=== PATIENT | male | born 2000 | race Caucasian/White ===

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

== ENCOUNTER 2020-01-22 16:20 | Emergency (ER) | payer BC, MEDICAID ==
--- NOTE | 2020-01-22 16:57 | ERPHSYRPT ---
- History of Present Illness Time Seen by Provider: 01/22/20 16:40 Source: patient Exam Limitations: no limitations Patient Subjective Stated Complaint: Pt states "My Dr., Dr. Pack, increased my diet medicine today and I have been having panic attacks and forgetting thi ngs." Triage Nursing Assessment: Pt presented alert and oriented X 3, skin pwd Pt ambulates with an upright steady gait, able to speak in clear full sentences. Pt in no apparent repsiratory distress. Physician History: This is an overweight 19-year-old white male who was seen by his primary care physician to be started on appetite suppressant medication. Patient had been on Topamax in the past at 25 mg a day. This was approximately 2 years ago. Patient was started on 200 mg Topamax orally twice a day. At approximately 10 AM he took his first dose today. Since that time he has felt nervous and had panic attacks. He was very forgetful and was concerned about his symptoms so he came to the emergency room after discussing these issues with the doctor's office who told him to come to the emergency department. Timing/Duration: today Severity: mild Modifying Factors: Improves With: medication Associated Symptoms: loss of appetite, other (Nervous anxious forgetfulness) Allergies/Adverse Reactions: No Known Drug Allergies Allergy (Verified 01/22/20 16:33) Home Medications: Topiramate [Topiramate ER] 25 mg PO DAILY 01/22/20 [History] Hx Tetanus, Diphtheria Vaccination/Date Given: No Hx Influenza Vaccination/Date Given: No Hx Pneumococcal Vaccination/Date Given: No Immunizations Up to Date: Yes Travel Risk - International Travel Have you traveled outside of the country in past 3 weeks: No - Coronavirus Screening Are you exhibiting any of the following symptoms?: Yes Symptoms: Vomiting/Diarrhea Close contact with a COVID-19 positive Pt in past 14-21 Days: No - Review of Systems Constitutional: No Symptoms Eyes: No Symptoms Ears, Nose, & Throat: No Symptoms Respiratory: No Symptoms Cardiac: No Symptoms Abdominal/Gastrointestinal: No Symptoms Genitourinary Symptoms: No Symptoms Musculoskeletal: No Symptoms Skin: No Symptoms Neurological: Other (Nervousness panic attacks forgetfulness) Psychological: Anxiety Endocrine: No Symptoms Hematologic/Lymphatic: No Symptoms Immunological/Allergic: No Symptoms All Other Systems: Reviewed and Negative - Past Medical History Pertinent Past Medical History: No Neurological History: No Pertinent History ENT History: No Pertinent History Cardiac History: No Pertinent History Respiratory History: No Pertinent History Endocrine Medical History: No Pertinent History Musculoskeletal History: No Pertinent History GI Medical History: No Pertinent History History: No Pertinent History Psycho-Social History: No Pertinent History Male Reproductive Disorders: No Pertinent History - Past Surgical History Past Surgical History: No Neuro Surgical History: No Pertinent History Cardiac: No Pertinent History Respiratory: No Pertinent History Gastrointestinal: No Pertinent History Genitourinary: No Pertinent History Musculoskeletal: No Pertinent History Male Surgical History: No Pertinent History - Social History Smoking Status: Never smoker Exposure to second hand smoke: No Drug Use: marijuana Patient Lives Alone: No - Nursing Vital Signs Nursing Vital Signs: Initial Vital Signs Temperature 97.9 F 01/22/20 16:27 Pulse Rate 109 H 01/22/20 16:27 Respiratory Rate 22 01/22/20 16:27 Blood Pressure 160/87 01/22/20 16:27 O2 Sat by Pulse Oximetry 95 01/22/20 16:27 Pain Scale Pain Intensity 0 - Physical Exam General Appearance: no apparent distress, alert, anxiety Eye Exam: PERRL/EOMI, eyes nml inspection Ears, Nose, Throat Exam: normal ENT inspection, moist mucous membranes Neck Exam: normal inspection, non-tender, supple, full range of motion Respiratory Exam: normal breath sounds, lungs clear, No chest tenderness, No respiratory distress Cardiovascular Exam: regular rate/rhythm, normal heart sounds, normal peripheral pulses Gastrointestinal/Abdomen Exam: soft, normal bowel sounds, No tenderness Rectal Exam: not done Back Exam: normal inspection, normal range of motion, No CVA tenderness, No vertebral tenderness Extremity Exam: normal inspection, normal range of motion, pelvis stable Neurologic Exam: alert, oriented x 3, cooperative, 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 There is no comparison EKG available.) Ordered Tests: Active Orders 24 hr Category Date Time Status EKG-ER Only STAT Care 01/22/20 16:59 Active CBC W DIFF Stat Lab 01/22/20 17:05 Completed CMP Stat Lab 01/22/20 17:05 Completed UA W/RFX UR CULTURE Stat Lab 01/22/20 17:50 Completed Urine Triage Profile Stat Lab 01/22/20 17:44 Ordered Medication Summary Discontinued Medications Generic Name Dose Route Start Last Admin Trade Name Sheryl PRN Reason Stop Dose Admin Lorazepam 0.5 mg 01/22/20 17:06 01/22/20 17:10 Ativan 2 Mg/1 Ml Vial IM 01/22/20 17:07 0.5 mg STAT ONE Administration Lorazepam Confirm 01/22/20 17:09 Ativan 2 Mg/1 Ml Vial Administered 01/22/20 17:10 Dose 2 mg .ROUTE .[facility]-MED ONE Lab/Rad Data: Laboratory Result Diagrams 01/22/20 17:05 01/22/20 17:05 Laboratory Results 01/22/20 01/22/20 01/22/20 Range/Units 17:50 17:05 17:05 WBC 8.1 (4.0-10.5) K/mm3 RBC 5.28 (4.1-5.6) M/mm3 Hgb 14.8 (12.5-18.0) gm/dl Hct 43.3 (42-50) % MCV 82.0 (78-100) fl MCH 28.0 (26-32) pg MCHC 34.2 (32-36) g/dl RDW 12.9 (11.5-14.0) % Plt Count 355 (150-450) K/mm3 MPV 9.9 (7.5-11.0) fl Gran % 60.1 (36.0-66.0) % Eos # (Auto) 0.10 (0-0.5) Absolute Lymphs (auto) 2.34 (1.0-4.6) Absolute Monos (auto) 0.74 (0.0-1.3) Lymphocytes % 29.1 (24.0-44.0) % Monocytes % 9.2 (0.0-12.0) % Eosinophils % 1.2 (0.00-5.0) % Basophils % 0.4 (0.0-0.4) % Absolute Granulocytes 4.84 (1.4-6.9) Basophils # 0.03 (0-0.4) Sodium 138 (137-145) mmol/L Potassium 3.7 (3.5-5.1) mmol/L Chloride 103 (98-107) mmol/L Carbon Dioxide 26 (22-30) mmol/L Anion Gap 13.3 (5-15) MEQ/L BUN 6 L (9-20) mg/dL Creatinine 0.84 (0.66-1.25) mg/dL Estimated GFR > 60.0 ML/MIN Glucose 115 H (74-106) mg/dL Calcium 9.9 (8.4-10.2) mg/dL Total Bilirubin 0.40 (0.2-1.3) mg/dL AST 31 (17-59) U/L ALT 50 (0-50) U/L Alkaline Phosphatase 49 (38-126) U/L Serum Total Protein 7.9 (6.3-8.2) g/dL Albumin 4.8 (3.5-5.0) g/dL Urine Color YELLOW (YELLOW) Urine Appearance CLEAR (CLEAR) Urine pH 9.0 (5-6) Ur Specific [place] 1.008 (1.005-1.025) Urine Protein NEGATIVE (Negative) Urine Ketones TRACE (NEGATIVE) Urine Blood NEGATIVE (0-5) Josue/ul Urine Nitrite NEGATIVE (NEGATIVE) Urine Bilirubin NEGATIVE (NEGATIVE) Urine Urobilinogen 2 (0-1) mg/dL Ur Leukocyte Esterase NEGATIVE (NEGATIVE) Urine WBC (Auto) NONE (0-5) /HPF Urine RBC (Auto) NONE (0-2) /HPF U Epithel Cells (Auto) NONE (FEW) /HPF Urine Bacteria (Auto) NONE (NEGATIVE) /HPF Urine Mucus (Auto) SLIGHT (NEGATIVE) /HPF Urine Culture Reflexed NO (NO) Urine Glucose NEGATIVE (NEGATIVE) mg/dL - Progress Progress: improved Progress Note: 01/22/20 16:57 Medical decision making: This patient started on 200 mg of Topamax this morning. He is having medication side effects. He denies ingesting any other illicit drugs. I reviewed the medication profile as it relates to his Topamax and his condition. We discussed side effects of that medication as well as the half- life. Patient was told not to ingest any type of caffeine-containing products. I discussed with him about possibly giving him some Ativan but he refuses any other medications at this time. He does agree to urinalysis, urine triage and lab work as well as EKG. Counseled pt/family regarding: lab results, diagnosis, need for follow-up - Departure Departure Disposition: Home Clinical Impression: Medication side effect Condition: Stable Critical Care Time: No Referrals: RANDY PACK MD [Primary Care Provider] - Additional Instructions: Drink plenty of fluids. Stop the Topamax. Call your prescribing doctor tomorrow for further management.
[2020-01-22] MEDS ORDERED: Ativan 2 MG/1 ML VIAL IM ONE (17:06)
[2020-01-22] MEDS ORDERED: Ativan 2 MG/1 ML VIAL ONE (17:09)
[2020-01-22 17:19] LABS: Absolute Neutrophil Ct (ANC) 4.84 (1.4-6.9); BASOPHIL % 0.4 % (0.0-0.4); Basophil (Absolute #) 0.03 (0-0.4); Eosinophil % 1.2 % (0.00-5.0); Hematocrit 43.3 % (42-50); Hemoglobin 14.8 gm/dl (12.5-18.0); Lymphocyte (Absolute #) 2.34 (1.0-4.6); Lymphocytes % 29.1 % (24.0-44.0); Mean Corpuscular Hgb Concent. 34.2 g/dl (32-36); Mean Platelet Volume 9.9 fl (7.5-11.0); Monocyte (Absolute #) 0.74 (0.0-1.3); Monocytes % 9.2 % (0.0-12.0); Neutrophil % 60.1 % (36.0-66.0); Platelet Count 355 K/mm3 (150-450); Red Blood Count 5.28 M/mm3 (4.1-5.6); Red Cell Distribution Width 12.9 % (11.5-14.0); White Blood Count 8.1 K/mm3 (4.0-10.5)
[2020-01-22 17:36] LABS: ALBUMIN 4.8 g/dL (3.5-5.0); ALKALINE PHOSPHATASE 49 U/L (38-126); ANION GAP 13.3 MEQ/L (5-15); BLOOD UREA NITROGEN 6 mg/dL (9-20); CHLORIDE 103 mmol/L (98-107); Calcium 9.9 mg/dL (8.4-10.2); Carbon Dioxide 26 mmol/L (22-30); Creatinine 1 0.84 mg/dL (0.66-1.25); EST GLOMERULAR FILTRATION RATE > 60.0 ML/MIN; Glucose 115 mg/dL (74-106); Potassium 3.7 mmol/L (3.5-5.1); SGOT/AST 31 U/L (17-59); SGPT/ALT 50 U/L (0-50); SODIUM 138 mmol/L (137-145); Total Protein 7.9 g/dL (6.3-8.2)
[2020-01-22 17:58] LABS: Appearance CLEAR (CLEAR); Bilirubin NEGATIVE (NEGATIVE); Blood NEGATIVE Ery/ul (0-5); Glucose NEGATIVE (NEGATIVE); Ketones TRACE (NEGATIVE); Leukocyte Esterase NEGATIVE (NEGATIVE); Mucus SLIGHT /HPF (NEGATIVE); Nitrite NEGATIVE (NEGATIVE); Protein,Urine Dip NEGATIVE (Negative); Specific Gravity 1.008 (1.005-1.025); Urobilinogen 2 mg/dL (0-1)
[2020-01-22 18:20] LABS: Barbiturate,Urine NEGATIVE (NEGATIVE); Benzodiazepine,Urine NEGATIVE (NEGATIVE); Cocaine,Urine NEGATIVE (NEGATIVE); Methadone,Urine NEGATIVE (NEGATIVE); Opiate,Urine NEGATIVE (NEGATIVE); PCP,Urine NEGATIVE (NEGATIVE); THC,Urine POSITIVE (NEGATIVE)
[2020-01-22 18:26] VITALS: BP 146/77; O2SAT 98
[2020-01-22 18:29] VITALS: PULSE 90
[2020-01-22 18:40] LABS: Amphetamine,Urine NEGATIVE (NEGATIVE)
== END 2020-01-22 18:29 | disposition home or self-care (01) ==
LOC: ED 16:20
DX: T42.6X5A Adverse effect of other antiepileptic and sedative-hypnotic drugs, initial encounter (principal); F41.0 Panic disorder [episodic paroxysmal anxiety]
CPT/HCPCS: 36415; 80053; 80307; 81001; 85025; 93005; 96372; 99284; J2060

== ENCOUNTER 2021-01-25 17:56 | Emergency (ER) | payer BC, MEDICAID ==
[2021-01-25] MEDS ORDERED: XYLOCAINE 1% HCL 20 ML MDV ONE (18:06)
--- NOTE | 2021-01-25 18:08 | ERPHSYRPT ---
- History of Present Illness Time Seen by Provider: 01/25/21 18:08 Source: patient Exam Limitations: no limitations Patient Subjective Stated Complaint: . Triage Nursing Assessment: . Physician History: This is a right-handed 20-year-old white male who was peeling/cutting potatoes when he accidentally cut the dorsal aspect of his left thumb. There was some bleeding present. Patient's tetanus status is up-to-date. Timing/Duration: today Quality: painful Severity: mild Location: hands (Left thumb dorsal aspect) Possible Causes: other (Accidental laceration by knife) Associated Symptoms: denies symptoms Allergies/Adverse Reactions: No Known Drug Allergies Allergy (Verified 01/25/21 18:08) Hx Tetanus, Diphtheria Vaccination/Date Given: No Hx Influenza Vaccination/Date Given: No Hx Pneumococcal Vaccination/Date Given: No Immunizations Up to Date: Yes Travel Risk - International Travel Have you traveled outside of the country in past 3 weeks: No - Coronavirus Screening Are you exhibiting any of the following symptoms?: No Close contact with a COVID-19 positive Pt in past 14-21 Days: No - Vaccine Status Have you recieved a Covid-19 vaccination: Yes Set Up [employer]ading [employer]: Moderna - Vaccination Dates Date of 2cond Vaccination (if applicable): unknown - Review of Systems Constitutional: No Symptoms Eyes: No Symptoms Ears, Nose, & Throat: No Symptoms Respiratory: No Symptoms Cardiac: No Symptoms Abdominal/Gastrointestinal: No Symptoms Genitourinary Symptoms: No Symptoms Musculoskeletal: No Symptoms Skin: Other (Laceration dorsal aspect left thumb) Neurological: No Symptoms Psychological: No Symptoms Endocrine: No Symptoms Hematologic/Lymphatic: No Symptoms Immunological/Allergic: No Symptoms All Other Systems: Reviewed and Negative - Past Medical History Pertinent Past Medical History: No Neurological History: No Pertinent History ENT History: No Pertinent History Cardiac History: No Pertinent History Respiratory History: No Pertinent History Endocrine Medical History: No Pertinent History Musculoskeletal History: No Pertinent History GI Medical History: No Pertinent History History: No Pertinent History Psycho-Social History: No Pertinent History Male Reproductive Disorders: No Pertinent History - Past Surgical History Past Surgical History: No Neuro Surgical History: No Pertinent History Cardiac: No Pertinent History Respiratory: No Pertinent History Gastrointestinal: No Pertinent History Genitourinary: No Pertinent History Musculoskeletal: No Pertinent History Male Surgical History: No Pertinent History - Social History Smoking Status: Never smoker Exposure to second hand smoke: No Drug Use: none Patient Lives Alone: No - Nursing Vital Signs Nursing Vital Signs: Initial Vital Signs Temperature 97 F 01/25/21 18:04 Pulse Rate 98 H 01/25/21 18:04 Respiratory Rate 16 01/25/21 18:04 O2 Sat by Pulse Oximetry 98 01/25/21 18:04 Pain Scale Pain Intensity 1 - Physical Exam General Appearance: no apparent distress, alert, anxiety Eye Exam: PERRL/EOMI, eyes nml inspection Ears, Nose, Throat Exam: normal ENT inspection, moist mucous membranes Neck Exam: normal inspection, non-tender, supple, full range of motion Respiratory Exam: airway intact, No chest tenderness, No respiratory distress Gastrointestinal/Abdomen Exam: No tenderness Rectal Exam: not done Back Exam: normal inspection, normal range of motion, No CVA tenderness, No vertebral tenderness Extremity Exam: normal range of motion, pelvis stable, lacerations (2.5 cm laceration dorsal aspect left thumb. Neurovascularly intact. Tendon intact), tenderness (Dorsal aspect left thumb) Neurologic Exam: alert, oriented x 3, cooperative, zone supervisor firearms II-XII nml as tested, normal mood/affect, nml cerebellar function, nml station & gait, sensation nml Skin Exam: laceration (See above) Lymphatic Exam: No adenopathy SpO2 Interpretation: normal SpO2: 98 O2 Delivery: Room Air Procedures - Laceration/Wound Repair Left Dorsal Finger Time of Procedure: 18:30 Wound Location: Left, hand (Thumb) Wound Length (cm): 2.5 Wound's Depth, Shape: superficial, linear Wound Explored: clean (No foreign body noted. Examination occurred in a bloodless field to the base) Irrigated: Yes Hibiclens Prep: Yes Anesthesia: 1% Lidocaine Volume Anesthetic (ccs): 4 Wound Repaired With: sutures Suture Size/Type: 4-0, ethilon Number of Sutures: 3 Layer Closure?: No Progress: 01/25/21 18:45 Laceration repair site was cleaned with Hibiclens solution and dried with 4 x 4 gauze. A thin layer of antibiotic ointment was applied. Nonstick gauze and pressure dressing was then applied. There were no complications. Patient tolerated procedure well 01/25/21 18:45 - Course Nursing assessment & vital signs reviewed: Yes Ordered Tests: Medication Summary Discontinued Medications Generic Name Dose Route Start Last Admin Trade Name Freq PRN Reason Stop Dose Admin Bacitracin Zinc Confirm 01/25/21 18:35 Bacitracin Packet 0.9 Gm Pckt Administered 01/25/21 18:36 Dose 1 gm .ROUTE .[facility]-MED ONE Lidocaine HCl Confirm 01/25/21 18:06 Lidocaine Hcl 1% 20 Ml Mdv 20 Ml Ml Administered 01/25/21 18:07 Dose 1 ml .ROUTE .ST[facility]-MED ONE - Progress Progress: improved Counseled pt/family regarding: diagnosis, need for follow-up - Departure Departure Disposition: Home Clinical Impression: Thumb laceration Condition: Stable Critical Care Time: No Referrals: RANDY PACK MD [Primary Care Provider] - Follow up/PCP as directed Additional Instructions: Keep current dressing in place for 24 hours. After 24 hours may remove the dressing and wash the site with soap and water. May then reapply thin layer of antibiotic ointment and bandage. Suture removal in 8 to 10 days. Use Tylenol and ibuprofen for pain control.
[2021-01-25] MEDS ORDERED: BACIGUENT PACKET ONE (18:35)
[2021-01-25 18:53] VITALS: PULSE 88; O2SAT 97
== END 2021-01-25 18:53 | disposition home or self-care (01) ==
LOC: ED 17:56
DX: S61.012A Laceration without foreign body of left thumb without damage to nail, initial encounter (principal); W26.0XXA Contact with knife, initial encounter; Y93.G1 Activity, food preparation and clean up
CPT/HCPCS: 12001; 99283; A9270-GY